=== PATIENT | male | born 1945 | race Caucasian/White ===

== ENCOUNTER 2021-07-21 12:20 | Emergency (ER) | payer MEDICARE ==
[2021-07-21 14:36] LABS: HEMOGLOBIN 8.2 gm/dl (14.0-17.5); RED BLOOD COUNT 3.41 M/UL (4.20-5.50); WHITE BLOOD COUNT 12.6 K/UL (4.5-11.0)
[2021-07-21] MEDS ORDERED: PROTONIX20 MG PO (15:21)
== END 2021-07-21 16:53 | disposition home or self-care (01) ==
LOC: ER1 12:20
PROVIDERS: Preventive Medicine Occupational Medicine
DX: D64.9 Anemia, unspecified (principal); N28.9 Disorder of kidney and ureter, unspecified; I10 Essential (primary) hypertension
CPT/HCPCS: 80053; 85025; 99284